=== PATIENT | male | born 1955 | race Hispanic/Latino ===

== ENCOUNTER 2019-05-06 07:01 | Outpatient (CLI) | payer BC ==
--- NOTE | 2019-05-06 07:55 | ULT ---
US Abdominal: 05/06/2019 12:00 AM CLINICAL HISTORY: Hematuria. STUDY: Complete abdominal ultrasound COMPARISON: None. FINDINGS: Liver: Size: Normal. Echogenicity: Normal. Contour: Smooth. Mass: None. Common bile duct: 4 mm Gallbladder: Normal. Pancreas: Head, body, and tail appear normal. Inferior vena cava: Normal in caliber Aorta: Normal in caliber Spleen: No focal lesions. Spleen measuring 10.6 cm in length. Right kidney: No pelvicalyceal dilatation. Right kidney measuring 8.9 cm in length. Left kidney: No pelvicalyceal dilatation. Left kidney measuring 9.3 cm in length. IMPRESSION: Unremarkable exam.
== END 2019-05-06 07:02 | disposition home or self-care (01) ==
LOC: BICULT 07:01
PROVIDERS: ATTEND Internal Medicine
DX: R31.9 Hematuria, unspecified (principal)
CPT/HCPCS: 76700

== ENCOUNTER 2019-09-02 12:31 | Outpatient (CLI) | payer BC ==
[2019-09-02] MEDS ORDERED: Iopamidol-370 76% 500 ML 1 ML ONE (12:45)
--- NOTE | 2019-09-02 14:12 | CT ---
CT ABDOMEN AND PELVIS WITH AND WITHOUT IV CONTRAST 09/02/2019 CLINICAL INFORMATION: Microhematuria. COMPARISON: None. Technique: Multiple contiguous axial CT images are obtained through the abdomen and pelvis with IV contrast. Cor onal reformatted images are provided. FINDINGS: Lower Chest: within normal limits. Vessels: Mild atherosclerotic plaque and calcifications are present in the abdominal aorta. The abdom inal aorta is normal in caliber. Abdomen: Portal vein:Patent Gallbladder: Within normal limits for CT imaging. Liver: within normal limits. Spleen: within normal limits. Pancreas: within normal limits. Adrenals: within normal limits. Kidneys: No renal or ureteral calculi are seen bilaterally, and there is no hydronephrosis. A subcent imeter too small to characterize hypodense lesion is seen in the superior pole left kidney. No enhancing renal mass is identified. Delayed images demonstrate no definitive filling defect within th e renal collecting system or visualized opacified ureters. Bowel: Scattered colonic diverticulosis. Small amount retained fecal material is seen throughout the colon. Loops of small bowel are normal in caliber. Appendix: The appendix is visualized and normal in caliber. Peritoneum: No ascites or free air; no fluid collection. Mesentery and Retroperitoneum: No enlarged mesenteric or retroperitoneal lymph nodes. Abdominal Wall: within normal limits. Pelvis: Reproductive Organs: No pelvic masses. Pelvis within normal limits. Bladder: Incompletely distended. Bones: Scattered degenerative changes are seen in the lower thoracic as well as involving the lumbar spine include facet degenerative changes in the lumbar spine. Mild degenerative changes are seen involving the sacroiliac joints bilaterally. IMPRESSION: 1. No renal or ureteral calculi are seen bilaterally, and there is no hydronephrosis or enhancing nannette al mass. 2. Subcentimeter too small to characterize hypodense lesion left kidney. 3. Colonic diverticulosis.
== END 2019-09-02 12:32 | disposition home or self-care (01) ==
LOC: BICCT 12:31
PROVIDERS: ATTEND Urology
DX: R31.29 Other microscopic hematuria (principal); K57.30 Diverticulosis of large intestine without perforation or abscess without bleeding; N28.9 Disorder of kidney and ureter, unspecified
CPT/HCPCS: 74178; Q9967

== ENCOUNTER 2019-09-03 06:40 | Outpatient (CLI) | payer BC ==
[2019-09-03 11:56] LABS: Hemoglobin 11.7 g/dL (14.0-18.0); Mean Corpuscular HGB CONC 35.3 g/dL (32.0-36.0); Mean Corpuscular Hemoglobin 31.5 pg (27.0-31.0); Mean Corpuscular Volume 89.2 fL (78.0-98.0); Mean Platelet Volume 8.1 fL (7.4-10.4); Platelet Count 215 thou/uL (130-400); RBC Distribution Width 11.6 % (11.5-14.5); Red Blood Cell (RBC) Count 3.71 mill/uL (4.70-6.10); White Blood Cell (WBC) Count 6.1 thou/uL (4.8-10.8)
[2019-09-03 12:00] LABS: Bilirubin Negative (Negative); Blood, Urine 2+ (Negative); Clarity Clear (Clear); Glucose, Urine (Dipstick) Normal (Negative); Leukocyte 75 Leu/uL (Negative); Nitrite Negative (Negative); Protein, Urine (Dipstick) Negative (Neg-Trace); Urobilinogen Normal mg/dL (Less than 2)
[2019-09-03 12:01] LABS: Squamous Epithelial 0-3 HPF (0-3); WBC/HPF 0-3 HPF (0-3)
[2019-09-03 12:02] LABS: INR-International Normal Ratio 1.1; PTT 37.9 SEC (22.9-36.1); Prothrombin Time 14.2 SEC (12.0-14.7)
[2019-09-03 12:06] LABS: Bacteria/HPF 1+ HPF (None Seen)
[2019-09-03 12:30] LABS: Anion Gap 11 mmol/L (10-20); BUN (Urea Nitrogen) 16 mg/dL (8.4-25.7); Calc. Creatinine Clearance 0 mL/min (70-130); Calcium 9.5 mg/dL (7.8-10.44); Carbon Dioxide 25 mmol/L (23-31); Chloride 105 mmol/L (98-107); Estimated GFR-MDRD Greater than 90; Glucose 78 mg/dL (80-115); Potassium 4.1 mmol/L (3.5-5.1); Sodium 137 mmol/L (136-145)
--- NOTE | 2019-09-04 15:57 | EKG ---
Test Reason : Blood Pressure : / mmHG Vent. Rate : 058 BPM Atrial Rate : 058 BPM P-R Int : 164 ms QRS Dur : 090 ms QT Int : 464 ms P-R-T Axes : 020 083 122 degrees QTc Int : 455 ms Sinus bradycardia T wave abnormality, consider anterior ischemia Cannot rule out Anterior infarct , age undetermined Abnormal ECG Confirmed by DILCIA DE PAZ ([id number]) on 09/04/2019 3:57:09 PM Referred By: ORALIA Confirmed By:DILCIA DE PAZ
== END 2019-09-03 06:41 | disposition home or self-care (01) ==
LOC: LABBT 06:40
PROVIDERS: ATTEND Urology
DX: Z01.818 Encounter for other preprocedural examination (principal); N47.1 Phimosis; R31.29 Other microscopic hematuria
CPT/HCPCS: 80048; 81001; 85027; 85610; 85730; 87086; 93005; 93010

== ENCOUNTER 2019-09-12 06:00 | Day surgery (SDC) | payer BC ==
[2019-09-03 10:18] VITALS: BMI 27.8
[2019-09-12] MEDS ORDERED: Fentanyl 100 MCG/2 ML VIAL ONE ×2 (06:48→09:28)
[2019-09-12] MEDS ORDERED: Phenylephrine 10 MG/ML VIAL ONE (06:49)
[2019-09-12] MEDS ORDERED: SUGAMMADEX SODIUM 200 MG/2 ML VIAL ONE (06:49)
[2019-09-12] MEDS ORDERED: ceFAZolin 1 GM/D5W 1 GM in Premix Bag 1 BAG IVPB SCH (07:00)
[2019-09-12] MEDS ORDERED: Bacitracin Zinc Ointment 30 gm TUBE ONE (07:12)
[2019-09-12] MEDS ORDERED: Bupivacaine 0.25% HCL 30 ML VIAL ONE (07:12)
[2019-09-12] MEDS ORDERED: CEFAZOLIN 1 GM in Sodium Chloride 0.9% 100 ML IVPB SCH (07:15)
--- NOTE | 2019-09-12 09:18 | OP ---
DATE OF PROCEDURE: 09/12/2019 SERVICE: Urology. PREOPERATIVE DIAGNOSIS: Microhematuria with phimosis. POSTOPERATIVE DIAGNOSIS: Microhematuria with phimosis. PROCEDURES PERFORMED: Circumcision and cystoscopy. INDICATIONS FOR PROCEDURE: Mr. Hu is a 63-year-old male, who presented to me with microhematuria. He was noted to have a severe degree of phimosis, which would probably preclude office-based cystoscopy. I had talked to him about perfusional stretching in the office versus circumcision and he elected to be circumcised instead. I told him we could perform the cystoscopy at the same time. Risks and benefits were discussed and he has agreed to proceed forward. DESCRIPTION OF PROCEDURE: After identification of armband and verification of consent, the patient was brought back to the operating room. He underwent general anesthesia with an LMA. He was left in supine position and prepped and draped in usual sterile fashion. After appropriate time-out, a dorsal penile nerve block was performed in 10 mL of 0.25% Marcaine plain. A dorsal slit was made on the phimosis due to the severity of the phimosis to allow for retraction of the foreskin. The underside of the foreskin was adherent to the backside of the glans, which had to be peeled off. The penis was then re-prepped with Betadine for improved stability and cleaning. A circumferential incision was then made with a 15 blade just beyond the coronal sulcus and the frenulum was divided with bipolar and monopolar cautery with a hemostat. The foreskin was then reduced and a counterincision was made overlying the first incision with a same 15 blade. The intervening skin was then removed with a combination of sharp dissection and Bovie electrocautery. Some of the lumpy underlying tissue was excised off and then meticulous hemostasis was performed with bipolar cautery. Once completely dry, the foreskin was re-approximated with back of the glans using a 4-0 chromic circumferentially and few interrupted stitches with a 5-0 chromic on the shiny portion of the underside of the glans. Some excess skin on the ventral aspect of the penis was excised off using tenotomy scissors and the defect closed using 4-0 chromic in a running fashion. Upon completion, the penis was very cosmetically pleasing. Dermabond was applied and once dried, a cystoscopy was performed with a flexible cystoscope. The urethra appeared normal without any abnormalities or strictures. The prostate was nonobstructive and minimally enlarged. Bladder neck was wide open and there were no other abnormalities. The bladder was moderately full. Both ureters were in orthotopic location approximately 5 to 10 mm away from the bladder neck. There was grade 1 trabeculation, but no tumors, bladder stones, lesions, concerning findings or cellules or diverticula noted. I satisfied that there was no apparent etiology in the lower urinary tract for the patient's microhematuria. The cystoscope was withdrawn. The patient was then awakened and taken to PACU for recovery in stable condition. COMPLICATIONS: None. ESTIMATED BLOOD LOSS: Minimal. RETAINED TUBES AND DRAINS: None. SPECIMENS: Foreskin. DISPOSITION: The patient will be discharged home and follow up with me in approximately 1 to 2 weeks for postop check. Job ID: [id number]
[2019-09-12] MEDS ORDERED: HYDROcodone/Acetaminophen 5/325 mg Tablet ONE (11:18)
[2019-09-12] MEDS ORDERED: EPHEDRINE 25 MG/5 ML SYRINGE ONE (11:53)
[2019-09-12] MEDS ORDERED: PHENYLEPHRINE-NS 100 MCG/ML 10 ML SYRINGE ONE (11:53)
[2019-09-12] MEDS ORDERED: Ketorolac Tromethamine 30 MG/ML VIAL ONE (11:53)
[2019-09-12] MEDS ORDERED: Glycopyrrolate 0.2 MG/ML 5 ML SYRINGE ONE (11:53)
[2019-09-12] MEDS ORDERED: Lidocaine 1% PF 5 ML VIAL ONE (11:53)
[2019-09-12] MEDS ORDERED: Ondansetron PF 4 MG/2 ML Vial ONE (11:53)
[2019-09-12] MEDS ORDERED: PROPOFOL 200 MG/20 ML VIAL ONE ×2 (11:53)
[2019-09-12] MEDS ORDERED: Dexamethasone 20 MG/5 ML VIAL ONE (11:53)
== END 2019-09-12 11:38 | disposition home or self-care (01) ==
LOC: SDC 06:00
PROVIDERS: ATTEND Urology
PROC: 0VTTXZZ Resection of Prepuce, External Approach (ICD-10-PCS; principal; 2019-09-12)
PROC: 0TJB8ZZ Inspection of Bladder, Via Natural or Artificial Opening Endoscopic (ICD-10-PCS; principal; 2019-09-12)
DX: N47.1 Phimosis (principal); R31.29 Other microscopic hematuria; N32.89 Other specified disorders of bladder; I10 Essential (primary) hypertension; E89.0 Postprocedural hypothyroidism; Z86.010 Personal history of colon polyps; Z86.14 Personal history of Methicillin resistant Staphylococcus aureus infection; Z79.82 Long term (current) use of aspirin; Z79.899 Other long term (current) drug therapy; Z91.048 Other nonmedicinal substance allergy status
CPT/HCPCS: 88304; J0690; J1100; J1885; J2001; J2370; J2405; J2704; J3010; J3490; S0020

== ENCOUNTER 2023-04-23 07:53 | Outpatient (CLI) | payer BC | END 2023-04-23 07:54 | disposition home or self-care (01) | LOC: BICULT 07:53 | PROVIDERS: ATTEND Internal Medicine | DX: R31.9 Hematuria, unspecified (principal) | CPT/HCPCS: 76770 ==